=== PATIENT | male | born 1950 | race Caucasian/White ===

== ENCOUNTER 2017-12-30 16:43 | Emergency (ER) | payer MEDICARE, MEDICAID ==
[~2017-12-30] VITALS: Ht 165.1 cm; Wt 59.0 kg
[2017-12-30 17:00] VITALS: BP 144/88
[2017-12-30] MEDS ORDERED: CALCIUM CARBON500 M1 PO (17:07)
[2017-12-30] MEDS ORDERED: PANTOPRAZOLE SO40 MG ORAL (17:07)
[2017-12-30] MEDS ORDERED: OXYBUTYNIN CHLO15 MG PO (17:07)
[2017-12-30] MEDS ORDERED: CYMBALTA30 MG ORAL (17:07)
[2017-12-30] MEDS ORDERED: KLONOPIN0.5 MG ORAL (17:07)
[2017-12-30] MEDS ORDERED: ABILIFY10 MG ORAL (17:07)
[2017-12-30] MEDS ORDERED: PROSCAR5 MG ORAL (17:07)
[2017-12-30] MEDS ORDERED: TAMSULOSIN HCL0.4 MG ORAL (17:07)
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
[2017-12-30] MEDS ORDERED: LEXAPRO10 MG ORAL (17:08)
[2017-12-30] MEDS ORDERED: Bacitracin Oint UD TOPIC ONE (17:09)
[2017-12-30 19:35] VITALS: BP 113/83
[2017-12-30 19:40] VITALS: BP 113/83
--- NOTE | 2017-12-31 09:56 | Diagnostic Imaging Report ---
Indication: Headache Technique: Contiguous 5 mm thick transaxial imaging of the head obtained in a Siem[employer] Sensation [address] scanner. Soft tissue and bone windows generated. Automatic Exposure Control was utilized. Total Dose length Product (DLP): 1400.[address] Dose Index Volume (CTDIvol): 70.38 mGy Comparison: none Findings: There is moderate prominence of the ventricles, basal cisterns, and cerebral sulci consistent with atrophy. Moderate, nonspecific, white matter hypoattenuation is noted throughout the brain consistent with chronic small vessel disease. There is a cavum septum pellucidum. There is no midline shift, edema, acute hemorrhage, mass effect, or abnormal extra-axial fluid collections. Bones and extra osseous soft tissues are unremarkable. Impression: No acute intracranial bleed, mass effect or edema. Moderate atrophy of the brain. Evidence of chronic small vessel disease involving white matter tracts. Cavum septum pellucidum. [facility] has communicated the preliminary results to the Emergency Department. Their findings are largely concordant with this report. The CT scanner at [facility] is accredited by the [employer] and the scans are performed using dose optimization techniques as appropriate to a performed exam including Automatic Exposure control.
== END 2017-12-30 19:40 ==
LOC: EDBD 16:43 → EMR 18:15
DX: S00.01XA Abrasion of scalp, initial encounter (principal); W03.XXXA Other fall on same level due to collision with another person, initial encounter; Y93.89 Activity, other specified; Y92.129 Unspecified place in nursing home as the place of occurrence of the external cause; I10 Essential (primary) hypertension; K21.9 Gastro-esophageal reflux disease without esophagitis
CPT/HCPCS: 70450; 99284